=== PATIENT | female | born 1960 | race Hispanic/Latino ===

== ENCOUNTER 2017-04-27 00:09 | Emergency (ER) | payer MEDICAID ==
[2017-04-27 00:19] VITALS: TEMP 98.3
[2017-04-27] MEDS ORDERED: Albuterol-Ipratrop 3 mg / 0.5 (3 ml) UD INH STA ×2 (00:45→00:47)
[2017-04-27] MEDS ORDERED: levoFLOXacin 500 MG TAB PO STA (00:45)
[2017-04-27] MEDS ORDERED: Albuterol-Ipratrop 3 mg / 0.5 (3 ml) UD ONE ×2 (00:52→01:03)
--- NOTE | 2017-04-27 00:52 | ED PDOC ---
HPI: CCC, URI, Sore Throat Time Seen by Provider: 04/27/17 00:27 Chief Complaint (Nursing): Cough, Cold, Congestion Chief Complaint (Provider): cough/sore throat x 4 days History Per: Patient History/Exam Limitations: no limitations Onset/Duration Of Symptoms: Days (4) Current Symptoms Are (Timing): Still Present Location Of Pain: Throat, Sinus/es Sick Contacts (Context): None Associated Symptoms: Sore Throat, Cough, Sinus Drainage, Nasal Congestion Severity: Moderate Additional Complaint(s): Patient is a 56 yo female with PMHx asthma presents with soar throat and cough that is dry for past 4 days. She also states she has sinus pressure and congestion. No associated fever N/V/D, CP. She reports she does notice green phlegm when she expectorates in am. Past Medical History Reviewed: Historical Data, Nursing Documentation, Vital Signs Vital Signs: Last Vital Signs Temp 98.3 F 04/27/17 00:12 Pulse 85 04/27/17 01:38 Resp 16 04/27/17 01:38 BP 132/74 04/27/17 01:38 Pulse Ox 100 04/27/17 01:38 - Medical History PMH: Anxiety, Arthritis (osteoarthritis), Asthma, Bipolar Disorder, Depression, Migraine, Rheumatoid Arthritis Denies: HIV, Chronic Kidney Disease - Surgical History Surgical History: Appendectomy, Tonsillectomy, - Family History Family History: States: Unknown Family Hx, Diabetes - Living Arrangements Living Arrangements: With Family - Social History Current smoker - smoking cessation education provided: No Ex-Smoker (has not smoked in the last 12 months): No Alcohol: None Drugs: Denies - Immunization History Hx Tetanus Toxoid Vaccination: No Hx Influenza Vaccination: No Hx Pneumococcal Vaccination: No - Home Medications Home Medications: Ambulatory Orders Medication Instructions Recorded Cetirizine HCl [Zyrtec] 10 mg PO DAILY #30 capsule 01/30/16 Diphenhydramine HCl 50 mg PO Q6 PRN #30 capsule 03/18/16 Fluticasone Propionate [Flovent 0.11 mg IH 04/01/16 Hfa] Ibuprofen [Motrin Tab] 800 mg PO TID #20 tab 04/01/16 Methotrexate 04/01/16 Tamsulosin [Flomax] 0.4 mg PO DAILY 04/01/16 Ventolin HFA 90 mcg/actuation (8 g) 04/01/16 Prednisone 50 mg PO DAILY #5 tablet 04/09/16 Pantoprazole Sodium [Protonix] 40 mg PO DAILY #30 tablet.dr 07/23/16 Polyethylene Glycol 3350 [Miralax] 17 gm PO DAILY #60 ml 07/23/16 Albuterol HFA [Ventolin HFA 90 1 - 2 puff IH Q6 PRN #1 inhaler 04/27/17 mcg/actuation (8 g)] Benzonatate [Tessalon Perle] 100 mg PO TID PRN #15 capsule 04/27/17 levoFLOXacin [Levaquin] 500 mg PO DAILY #10 tab 04/27/17 - Allergies Allergies/Adverse Reactions: Allergies Allergy/AdvReac Type Severity Reaction Status Date / Time ciprofloxacin [From Cipro] Allergy ANAPHYLAXIS Verified 06/15/16 15:13 ciprofloxacin HCl Allergy ANAPHYLAXIS Verified 06/15/16 15:13 [From Cipro] FISH Allergy ANAPHYLAXIS Verified 06/15/16 15:13 Iodine and Iodide Containing Allergy ANAPHYLAXIS Verified 07/23/16 06:21 Produc nitrofurantoin Allergy ANAPHYLAXIS Verified 06/15/16 15:13 [From Macrobid] nitrofurantoin Allergy ANAPHYLAXIS Verified 06/15/16 15:13 macrocrystalline [From Macrobid] Penicillins Allergy ANAPHYLAXIS Verified 06/15/16 15:13 Sulfa (Sulfonamide Allergy ANAPHYLAXIS Verified 06/15/16 15:13 Antibiotics) venom-honey bee Allergy ANAPHYLAXIS Verified 06/15/16 15:13 [bee venom (honey bee)] Physical Exam - Reviewed Nursing Documentation Reviewed: Yes Vital Signs Reviewed: Yes - Physical Exam Appears: Positive for: Non-toxic, Uncomfortable Head Exam: Positive for: ATRAUMATIC, NORMOCEPHALIC Skin: Positive for: Normal Color, Warm, Dry Eye Exam: Positive for: Normal appearance, EOMI, PERRL ENT: Positive for: Normal ENT Inspection. Negative for: Pharyngeal Erythema, Tonsillar Exudate Neck: Positive for: Normal Cardiovascular/Chest: Positive for: Regular Rate, Rhythm. Negative for: Edema, Gallop Respiratory: Positive for: Decreased Breath Sounds, Wheezing (mild exp wheezing) Gastrointestinal/Abdominal: Positive for: Normal Exam, Bowel Sounds, Soft. Negative for: Tenderness Back: Positive for: Normal Inspection. Negative for: L CVA Tenderness, R CVA Tenderness Extremity: Positive for: Normal ROM. Negative for: Tenderness, Pedal Edema Neurologic/Psych: Positive for: Alert, Oriented. Negative for: Motor/Sensory Deficits - ECG O2 Sat by Pulse Oximetry: 97 Medical Decision Making Medical Decision Makin yo female with cough and sinus congestion Trial of Duonebs and Levaquin ordered (Pt denies Cipro Allergy and states she takes at home) Pt states she has already started Prednisone at home Pt reports symptomatic improvement and is stable on dc Dx Sinusitis/Bronchitis FU PCP 2 days, Levaquin/Tessalon/Ventolin, continue Prednisone Disposition - Clinical Impression Clinical Impression: Sinusitis, Bronchitis - Disposition Disposition: Routine/Home Disposition Time: 01:00 Condition: STABLE Prescriptions: Albuterol HFA [Ventolin HFA 90 mcg/actuation (8 g)] 1 - 2 puff IH Q6 PRN #1 inhaler PRN Reason: Shortness Of Breath Benzonatate [Tessalon Perle] 100 mg PO TID PRN #15 capsule PRN Reason: Cough levoFLOXacin [Levaquin] 500 mg PO DAILY #10 tab Instructions: Sinusitis (ED), Acute Bronchitis (ED)
[2017-04-27 01:39] VITALS: BP 132/74; PULSE 85; RESP 16
[2017-04-27 03:08] VITALS: O2SAT 97
== END 2017-04-27 01:39 | disposition home or self-care (01) ==
LOC: H.ER 00:09
DX: J40 Bronchitis, not specified as acute or chronic (principal); R05 Cough; J32.9 Chronic sinusitis, unspecified

== ENCOUNTER 2017-07-13 10:53 | Emergency (ER) | payer MEDICAID ==
[2017-07-13 11:23] VITALS: BP 116/90; PULSE 90; RESP 16; TEMP 97.2; O2SAT 98
[2017-07-13] MEDS ORDERED: Bacitracin 500 Units/gm Oint Foilpak UD TOP STA (11:40)
[2017-07-13] MEDS ORDERED: Naproxen 500 MG TAB PO ONE ×2 (11:40→11:55)
[2017-07-13] MEDS ORDERED: Bacitracin 500 Units/gm Oint Foilpak UD ONE (11:55)
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
== END 2017-07-13 13:21 | disposition home or self-care (01) ==
LOC: H.ER 10:53
DX: T20.00XA Burn of unspecified degree of head, face, and neck, unspecified site, initial encounter (principal); X19.XXXA Contact with other heat and hot substances, initial encounter; Y92.89 Other specified places as the place of occurrence of the external cause; F31.9 Bipolar disorder, unspecified; F41.9 Anxiety disorder, unspecified; Z88.0 Allergy status to penicillin